=== PATIENT | female | born 1985 | race Asian ===

== ENCOUNTER → 2016-12-28 | Outpatient (CLI) | payer OTHER ==
--- NOTE | ~2016-12-28 | US24 ---
[facility] A Service of [facility] RADIOLOGY TEXT RESULTS PATIENT: ANTONIO ALVAREZ LOCATION: [facility] : 89 UNIT #: [id number] AGE: [address]: JENNIE MCPHERSON MD SEX: F ORDER DR: [id number] [place], [place] [address] [id number] MR#: [id number] Acc #: [id number] NAME: ANTONIO ALVAREZ : 1985 SEX: F STUDY DATE/TIME: 12/28/2016 8:25 UNIT: [facility] ROOM: STUDY DESCRIPTION: US Breast Unilateral Attending Physician: Jennie Mcpherson M.D. Ordering Physician: Jennie Mcpherson M.D. Primary Care Physician: Jennie Mcpherson M.D. MEDICAL IMAGING REPORT This report is preliminary unless electronic signature is present EXAM Left breast ultrasound. INDICATIONS Left breast pain since 2014. Patient is 8 weeks . PROCEDURE Andrews-scale imaging of the left breast in the area of patient's pain. COMPARISON None. FINDINGS No sonographic abnormality. There is dense breast tissue in the area of concern, at the 12 to 6 o'clock position. IMPRESSION Dense breast tissue, benign left breast ultrasound. Recommend continued clinical follow up. Patients over the age of 40 are entered into a reminder system with target due date for the next mammogram. A result letter will also be sent to the patient. BIRADS: 2 Benign findings. Dictated by... Harpal Avilez M.D. THIS IS AN ELECTRONICALLY VERIFIED REPORT Harpal Avilez M.D. at 12/29/2016 7:13 AM EED/jt [facility] A Service [facility] RADIOLOGY TEXT RESULTS PATIENT: ANTONIO ALVAREZ LOCATION: [facility] : 89 UNIT #: [id number] AGE: [address]: JENNIE MCPHERSON MD SEX: F ORDER DR: TD: 12/28/2016 21:06 JOB #: [id number] MEDICAL IMAGING REPORT Page 1 of 1 COPY
== END | disposition home or self-care (01) ==
LOC: CWCC 08:00
DX: N64.4 Mastodynia (principal); R92.8 Other abnormal and inconclusive findings on diagnostic imaging of breast
CPT/HCPCS: 76641